=== PATIENT | female | born 1960 ===

== ENCOUNTER 2024-03-14 21:28 | Emergency (ER) | payer OTHER, SELFPAY ==
[2024-03-14 21:30] VITALS: BP 150/80
--- NOTE | 2024-03-14 22:25 | ED.GENMED ---
History of Present Illness
General
Chief Complaint: Skin Problem
Source: patient and spouse
Exam Limitations: none
Time Seen by Provider: 03/14/24 22:05
Nursing documentation reviewed up to this point in time: agreed with
Travel History
Have you had any contact with someone who has COVID-19?: No
Do you have any symptoms of coronavirus? Fever > 100 degrees, chills, cough, shortness of breath, sore throat, loss of taste or smell, muscle aches, or headache?: No
History of Present Illness
History of Present Illness:
63-year-old female presents emergency department complaining a large red area on her left lower leg that began on Friday. Started as a small round red area and increased. She started amoxicillin yesterday and has had 4 doses.
Past History
Past History
ED Past Medical History: Other (Multiple sclerosis)
ED Past Surgical History: Tonsilectomy and Other (Breast lumpectomy)
Social History
Tobacco: Non-smoker
Alcohol: None
Drug: None
Personal:
Living: with family
Review of Systems
Review of Systems
Allergies reviewed?: Yes
All Other Systems: Not applicable
Constitutional: Reports no symptoms
EENT: Reports no symptoms
Respiratory: Reports no symptoms
Cardiac: Reports no symptoms
ABD/GI: Reports no symptoms
: Reports no symptoms
Musculoskeletal: Reports no symptoms
Skin: Reports rash
Neurological: Reports no symptoms
Endocrine: Reports no symptoms
Hematologic/Lymphatic: Reports no symptoms
Psychiatric: Reports no symptoms
Phy Exam
Physical Exam
Physical Exam:
Physical Exam
General: no apparent distress, not acutely ill
Neck: supple. no meningeal signs. normal posterior pharynx
Heart: s1/s2 regular rate and rhythm, no murmur. equal radial
pulses.
HEENT: Pupils equal round reactive to light, EOMI
Lungs: no acute respiratory distress. clear bilaterally
Abdomen: normal bowel sounds. not tender. no CVAT
Neuro: alert and oriented. no focal neurological deficits cranial nerves II through XII intact
Skin: Erythema, round rash with central wound eschar
Psychiatric: well kept. interactive and cooperative
Extremities: no edema. no calf tenderness. negative homans. good distal pulses
Course
Orders/Labs/Results
Orders:
Orders
03/14/24 22:22
CRP [C-Reactive Protein] Urgent
Complete Blood Count/With Diff Urgent
ESR [Erythrocyte Sed Rate] Urgent
Lyme Progressive Urgent
03/14/24 22:41
Comprehensive Metabolic Panel Urgent
03/14/24 23:52
Doxycycline [Vibramycin] 100 mg PO NOW STA
Abnormal Lab Results
03/14/24 03/14/24
22:22 22:41
RBC 4.18 L 10^6/uL
(4.20-5.40)
Hct 35.4 L %
(37.0-47.0)
Absolute Lymphs (auto) 0.9 L 10^3/uL
(1.2-3.4)
Absolute Monos (auto) 0.7 H 10^3/uL
(0.1-0.6)
Lymphocytes % 18.3 L %
(20.5-51.1)
Monocytes % 14.0 H %
(1.7-9.3)
ESR 25 H mm/hour
(0-20)
Glucose 109 H mg/dl
(70-99)
AST 76 H U/L
(14-36)
ALT 60 H U/L
(0-35)
Alkaline Phosphatase 134 H U/L
(38-126)
C-Reactive Protein 46.60 H mg/L
(0.0-10.00)
03/14/24 22:22
03/14/24 22:41
Vital Signs
Initial and Last Documented VS:
Initial Vital Signs
Temp Pulse Resp BP Pulse Ox
98.1 F 98 22 150/80 100
03/14/24 21:30 03/14/24 21:30 03/14/24 21:30 03/14/24 21:30 03/14/24 21:30
Last Documented Vital Signs
Temp Pulse Resp BP Pulse Ox
98.1 F 98 22 150/80 100
03/14/24 21:30 03/14/24 21:30 03/14/24 21:30 03/14/24 21:30 03/14/24 21:30
MDM/Problems Addressed
Differential Diagnosis Includes:
Cellulitis, wound infection
MDM/Problems Addressed:
63-year-old female with cellulitis, possibly Lyme disease. Treat with doxycycline. No signs of toxic epidermal necrolysis
Chronic conditions affecting care: Neurological disorder (MS)
*Pulse Oximetry
Patient hypoxic: no
*EKG
Interpreted by ED Provider?: NA
*Second Mate Interpretation
Rate: Second Mate- N/A
*Critical Care Note
Total Time (30-74mins, 75-104mins- exclusive of procedures): Not Applicable
Patient Management
Social determinants of health affecting care: Strong social support
Escalation/DeEscalation of care consider admission/obs:
admit not indicated
ED Attending Note
-
Portions of this chart may have been created with voice recognition software.� Occasional wrong word or��sound alike� substitutions may have occurred due to the inherent limitations of voice recognition software.
Discharge Plan
Departure
Patient Disposition: Home (Routine Discharge)
Date of Disposition: 03/15/24
Time of Disposition: 00:02
Patient with high blood pressure during this ER visit?: Yes
Condition: Good
Discharge Problem:
Cellulitis of left anterior lower leg
Instructions: Cellulitis (Skin Infection), Adult (DC), BLOOD PRESSURE
Prescriptions:
New
doxycycline hyclate 100 mg capsule
100 mg PO BID Qty: 20 0RF
Referrals:
Traci Novoa DO [Family Provider] - Call in 1-3 days for appt
Interventions
Interventions:
*Risk Screen - Suicide Last Done: 03/14/24 21:30
*General Assessment Last Done: 03/14/24 22:33
*Neglect/Abuse Screening Last Done: 03/14/24 21:30
ED- Fall Risk Assessment Last Done: 03/14/24 22:35
*ED COVID-19 Vaccine History Last Done: 03/14/24 22:33
ED-Skin Assessment Last Done: 03/14/24 22:37
Discharge Date and Time
Print Language: ESTONIAN
[2024-03-14 22:32] VITALS: BMI 22.9
[2024-03-14 22:42] LABS: % Basophils 0.6 % (0-2); % Eosinophils 1.8 % (0-6); % Immature Granulocytes 0.2 % (0-0.5); % Lymphocytes 18.3 % (20.5-51.1); % Neutrophils 65.1 % (42.2-75.2); Absolute Eosinophils 0.1 10^3/uL (0-0.7); Absolute Lymphocytes 0.9 10^3/uL (1.2-3.4); Absolute Monocytes 0.7 10^3/uL (0.1-0.6); Absolute Neutrophils 3.3 10^3/uL (1.4-6.5); Hematocrit 35.4 % (37.0-47.0); Hemoglobin 12.8 g/dL (12.0-16.0); Mean Corp Hgb Conc. 36.2 g/dL (33.0-37.0); Mean Corpuscular Hgb 30.6 pg (27.0-31.0); Mean Corpuscular Volume 84.7 fL (81.0-99.0); Mean Platelet Volume 10.2 fL (7.4-10.4); Nucleated Red Blood Cells % 0 %; Platelet Count 179 10^3/uL (130-400); Red Blood Cell Count 4.18 10^6/uL (4.20-5.40); Red Cell Dist. Width 12.2 % (11.5-14.5); White Blood Cell Count 5.1 10^3/uL (4.8-10.8)
[2024-03-14 22:50] LABS: Erythrocyte Sed Rate 25 mm/hour (0-20)
[2024-03-14 22:56] LABS: ALT (SGPT) 60 U/L (0-35); AST (SGOT) 76 U/L (14-36); Albumin 3.9 g/dl (3.5-5.0); Alkaline Phosphatase 134 U/L (38-126); Blood Urea Nitrogen 17 mg/dl (7-17); Calcium 9.2 mg/dl (8.4-10.2); Carbon Dioxide 25 mmol/L (22-30); Chloride 104 mmol/L (98-107); Estimated Creatinine Clearance 72 ml/min; Glucose 109 mg/dl (70-99); Potassium 4.3 mmol/L (3.5-5.1); Sodium 137 mmol/L (135-145); Total Bilirubin 0.4 mg/dl (0.2-1.3); eGFR > 60.00
[2024-03-15] MEDS: VIBRAMYCIN 100 MG PO (00:05)
[2024-03-15 00:13] VITALS: BP 136/74
[2024-03-15 14:39] LABS: Lyme Antibody Screen, EIA Negative (Negative)
== END 2024-03-15 00:20 | disposition home or self-care (01) ==
LOC: EMR 21:28
PROVIDERS: EMERGENCY PHYSICIAN Emergency Medicine; FAMILY PHYSICIAN Family Medicine
DX: L03.116 Cellulitis of left lower limb (principal); R03.0 Elevated blood-pressure reading, without diagnosis of hypertension; G35 Multiple sclerosis; Z86.16 Personal history of COVID-19
CPT/HCPCS: 99283; 80053; 85025; 85652; 86140; 86618